=== PATIENT | female | born 1990 | race Caucasian/White ===

== ENCOUNTER 2017-11-26 08:00 | Inpatient (IN) ==
--- NOTE | 2017-11-26 15:29 | OB/GYN History & Physical ---
Date of Encounter: 11/26/17 Time of Encounter: 15:13 Assessment and Plan (1) 40 weeks gestation of Current visit: Yes Status: Acute IOL with cytotec planned, Anticipate (2) Placental abnormality in third trimester Current visit: Yes Status: Acute Patient with accessory lobe of the placenta (3) Tobacco smoking affecting , antepartum Current visit: No Status: Chronic Patient currently using nicotine patches (4) complicated by subutex maintenance, antepartum Current visit: Yes Status: Acute Patient currently taking 8 mg twice a day.Pt told to bring home subutex and was made aware we will not give her new rx here. History of Present Illness Chief complaint: Here for induction of labor HPI: Ms. Marcial is a 27 year old female presenting to labor and delivery for induction of labor. Patient is a . Gestational age of 40 weeks and 3 days. Patiently currently taking Subutex 8 mg in the morning and 8 mg at night. Along with vitamin and nicotine patch. Patient has had a complicated due to accessory lobe of the placenta and noncompliance with medical treatment, missed appointments and testing, did not have MFM consultation as recommended. . The patient reports good movement, denies any vaginal bleeding, cramping or discharge. She denies urinary symptoms at this time. Denies any other symptoms or fevers recently. Labs: Patient is O+ but tested positive for antibodies on blood screen. GBS and HIV negative, Unknown Rubella, varicella and TPall labs Past Med Surg Social Fam HX - Past Medical History Medical history: other (Hepatitis C) Psychiatric history: no psych history - Past Surgical History Surgical History: no surgical history - Social History Smoking Status: Current every day smoker Smokeless Tobacco Status: No Alcohol use: none Drug use: opiates, prescription drug abuse - Family History Mother Family Member Ethnicity: Non- Living Status: Still Living Hx Family Cardiac Disorders: No Hx Family Respiratory Disorders: No Hx Family Cancer: No Hx Family GI Disorders: No Hx Family Endocrine Disorder: No Hx Family Neuromuscular Disorders: No Hx Family Neurologic Disorders: No Hx Family HEENT Disorders: No Hx Family Autoimmune Disorders: No Obstetrical History - Pregnancies : 4 Para: 3 Term: 3 : 0 Ab's: 0 Livin Medications and Allergies Tablet 1 tab PO DAILY 11/06/15 [History] Subutex 8 mg PO BID 11/06/15 [History] 3 Allergy/AdvReac Type Severity Reaction Status Date / Time cephalexin [From Keflex] Allergy Hives Verified 11/06/15 21:56 Review of System OB All systems PM: reviewed and no additional remarkable complaints except as stated Exam - Constitutional Constitutional: well developed, well nourished, no acute distress, average body habitus - HEENT HEENT: Normocephaly, Mucus Membranes Moist - Neck Neck exam: normal inspection - Lungs Respiratory exam: CTAB - Cardiovascular Cardiovascular exam: RRR - Abdomen Abdomen: Present: bowel sounds normal, gravid, non tender - Extremities Extremities exam: mottling (Pt with irregular coloring to lower legs ) - Vagina Vagina: Present: normal moisture - Cervix Dilation: 5 - Uterus Uterus exam: Present: normal contour Results Result Diagrams: 11/26/17 16:12 All other labs normal.
[2017-11-26] MEDS ORDERED: Metoclopramide 10 MG/2 ML VIAL IVP PRN ×2 (15:51→18:00)
[2017-11-26] MEDS ORDERED: Famotidine 20 MG/2 ML VIAL IVP PRN (15:51)
[2017-11-26] MEDS ORDERED: Naloxone 0.4 MG/ML INJ IVP PRN ×2 (15:51→18:02)
[2017-11-26] MEDS ORDERED: Ondansetron 4 MG/2 ML VIAL IVP PRN (15:51)
[2017-11-26] MEDS ORDERED: miSOPROStol 25 MCG TABLET PO PRN (15:57)
[2017-11-26] MEDS ORDERED: Ringers Solution, Lactated 1,000 ML IVC SCH ×2 (16:00→18:00)
[2017-11-26 16:29] LABS: Basophils % 0.2 %; Eosinophils # 0.1 K/mcL (0.0-0.6); Eosinophils % 0.6 %; Hematocrit 30.2 % (35.3-44.9); Hemoglobin 9.3 g/dL (11.5-15.4); Immature Granulocytes % 0.6 % (0-4); Lymphocytes # 2.4 K/mcL (0.6-4.6); Lymphocytes % 19.6 %; Mean Corpuscular HGB Conc 30.8 g/dL (31.6-35.5); Mean Corpuscular Volume 74.6 fL (83.0-100.0); Mean Platelet Volume 8.9 fL (9.4-12.4); Monocytes # 0.7 K/mcL (0.0-1.3); Monocytes % 5.2 %; Neutrophils # 9.2 K/mcL (1.6-8.9); Platelet Count 409 K/mcL (140-400); Red Blood Count 4.05 M/mcL (3.82-4.97); Red Cell Distribution Width 15.8 % (11.5-14.5); Segmented Neutrophils % 73.8 %
[2017-11-26 16:37] LABS: Amphetamine Screen,Urine Negative ng/mL (Cutoff=1000); Barbiturate Screen,Urine Negative ng/mL (Cutoff=200); Benzodiazepines Screen,Urine Negative ng/mL (Cutoff=200); Cannabinoid Screen,Urine Negative ng/mL (Cutoff = 50); Cocaine Screen,Urine Negative ng/mL (Cutoff= 300); Opiate Screen,Urine Negative ng/mL (Cutoff=300); Phencyclidine Screen,Urine Negative ng/mL (Cutoff=25)
[2017-11-26] MEDS ORDERED: *HR* FentaNYL (PF) 100 MCG/2 ML VIAL ONE (17:06)
[2017-11-26] MEDS ORDERED: *HR* Propofol 200 MG/20 ML VIAL IVP ONE (17:06)
[2017-11-26] MEDS ORDERED: *HR* Succinylcholine 200 MG/10 ML VIAL IVP ONE (17:08)
[2017-11-26] MEDS ORDERED: Clindamycin 900 MG/50 ML 900 MG/50 ML IV.SOLN IVPB ONE (17:09)
[2017-11-26] MEDS ORDERED: *HR* Oxytocin 10 UNIT/ML VIAL IM ONE (17:15)
[2017-11-26] MEDS ORDERED: *HR* HYDROmorphone (PF) 1 MG/ML SYRINGE ONE (17:24)
[2017-11-26] MEDS ORDERED: Ketorolac 30 MG/ML VIAL ONE (17:26)
--- NOTE | 2017-11-26 17:28 | OB Labor Progress Note ---
Date of Encounter: 11/26/17 Time of Encounter: 16:53 Labor Progress Note - Subjective Subjective: Called to room for decels on tracing. - Heart Tones Heart Tones: baseline 120/+accels/ 1 prolonged decel and recurrent variable or late decels. - Interventions Interventions: AROM for clear fluid, FSE placedl repositioning. - Plan Plan: Decels continued to occur despite corrective measures. Dr. Panchal called, decision for section made at this time. Patient transferred to OR.
[2017-11-26] MEDS ORDERED: Ondansetron 4 MG/2 ML VIAL IVP ONE (17:51)
[2017-11-26] MEDS ORDERED: Dexamethasone 4 MG/ML VIAL IVP ONE (17:51)
[2017-11-26] MEDS ORDERED: *HR* HYDROmorphone (PF) 1 MG/ML SYRINGE IVP PRN (17:51)
[2017-11-26] MEDS ORDERED: *HR* Promethazine 25 MG/ML VIAL IVP PRN (17:51)
[2017-11-26] MEDS ORDERED: Simethicone 80 MG TAB.CHEW PO PRN (18:00)
[2017-11-26] MEDS ORDERED: Oxytocin 20 units/ LR 1000 mL 20 UNIT/1,000 ML BAG IVC SCH (18:00)
[2017-11-26] MEDS ORDERED: Ondansetron 4 MG/2 ML VIAL IVP SCH (18:00)
[2017-11-26] MEDS ORDERED: Measles/Mumps/Rubella Vacc 0.5 ML VIAL SQ ONE (18:00)
[2017-11-26] MEDS ORDERED: Sennosides 8.6 MG TABLET PO PRN (18:00)
[2017-11-26] MEDS ORDERED: *HR* HYDROmorphone 20 MG/20 ML PCA IVC PRN (18:02)
--- NOTE | 2017-11-26 18:07 | OB/GYN Procedure Note ---
<Jazlyn Donnelly - Last Filed: 11/26/17 18:05> Section - Date of procedure: 11/26/17 Preop diagnosis: category 2 FHT tracing, desires sterilization Post-op diagnosis: same (parital abruption) Procedure: section, primary low transverse, bilateral tubal ligation Surgeon: Ish Panchal Estimated blood loss (cc): 300 Was there an head start assistant teacher present: Yes Plant Maintenance Technician: Jazlyn Donnelly Anesthesiologist: Jaiden Martin Anesthesia Type: General section complications: none Disposition: PACU Specimens: Placenta, Cord blood, Right tube segment, Left tube segment - (s) A Delivery Date: 11/26/17 Infant Delivery Time: 17:15 Presentation: vertex Position: LYNSEY Gender: Male Viability: Viable Pounds: 7 Ounces: 6 Gram Weight: 3355 kg at 1 minute: 8 at 5 minutes: 9 Shoulder Dystocia: not encountered Specimens collected: cord blood Placenta: complete extraction <Ish Panchal - Last Filed: 11/27/17 04:55> Section - Narrative Narrative: Patient was taken to the operating room. She was prepped and draped in the standard fashion. Fry catheter was inserted. After satisfactory anesthesia was achieved an appropriate timeout was obtained, the abdomen was entered through standard Maylard incision. The Leonora retractor was placed. The peritoneum overlying the lower uterine segment was incised in U-shaped fashion. Uterine cavity was entered sharply and extended laterally. Membranes ruptured with clear fluid. With fundal pressure the head, torso, and legs were delivered. The umbilical cord clamped and cut and the was handed to nursery staff for further evaluation. Placenta was removed. Tubes were bilaterally resected and sent to pathology for analysis. Pedicles were ligated using 2-0 chromic. Uterus closed with 0 Monocryl in a single layer. KUB was obtained which was negative. The abdomen was closed in standard fashion using 0 Vicryl on the fascia in renetta on the skin. Sterile dressing was applied. Patient was taken to recovery in satisfactory condition.
--- NOTE | 2017-11-27 02:39 | Anesthesia Evaluation Post Op ---
Date of Encounter: 11/27/17 Time of Encounter: 20:00 - Vital Signs Vital Signs: BP 116/59 P81 R 16 T 98.3 spo2 98 - Lungs Lungs: Clear Ascult./Percussion - Airway Airway: Non-obstructed - Cardiovascular Regular Rate - Mental Status Mental Status: Alert & Oriented, Answers Appropriately - Pain Pain Scale: 3 Pain Scale used: Numeric (1 - 10) - Nausea Vomiting Nausea Vomiting: Not Present - Hydration Hydration: NPO, Has not voided - Discharge PostOp Status: Transfer Patient to floor
[2017-11-27 05:11] LABS: Basophils % 0.1 %; Hematocrit 27.7 % (35.3-44.9); Hemoglobin 8.6 g/dL (11.5-15.4); Immature Granulocytes % 0.7 % (0-4); Lymphocytes # 2.2 K/mcL (0.6-4.6); Lymphocytes % 11.2 %; Mean Corpuscular Hemoglobin 23.1 pg (28.0-33.3); Mean Corpuscular Volume 74.5 fL (83.0-100.0); Monocytes # 0.8 K/mcL (0.0-1.3); Monocytes % 4.1 %; Neutrophils # 16.3 K/mcL (1.6-8.9); Nucleated Red Blood Cells 0.1 /100 WBC (0); Platelet Count 407 K/mcL (140-400); Red Blood Count 3.72 M/mcL (3.82-4.97); Red Cell Distribution Width 15.8 % (11.5-14.5); Segmented Neutrophils % 83.9 %
--- NOTE | 2017-11-27 08:34 | OB/GYN Progress Note ---
Date of Encounter: 11/27/17 Time of Encounter: 08:32 - Assessment and Plan (1) S/P section Current Visit: Yes Status: Acute Pt meeting POD#1 milestones. Await ambulation, spontaneous void, and flatus. D/ C PLUMBER HELPER this am. Percocet and home subutex for pain control. (2) Mother currently breast-feeding Current Visit: Yes Status: Acute (3) anemia Current Visit: Yes Status: Acute Continue iron (4) complicated by subutex maintenance, antepartum Current Visit: Yes Status: Acute Pt to take home subutex once verified by pharmacy. (5) Tobacco smoking affecting , antepartum Current Visit: No Status: Chronic Subjective - Subjective Interval history: Fry removed this am. Pt reports moderate pain. She has not yet ambulated, voided , or had flatus. SHe is tolerating a regular diet. Patient reports: appetite normal, pain well controlled : doing well, nursing well Objective - Vital Signs Latest vital signs: Vital Signs Temp Pulse Resp BP Pulse Ox 11/27/17 03:30 98.3 F 66 16 102/61 95 11/26/17 22:00 97.8 F 86 18 110/70 95 11/26/17 21:30 98.7 F 83 16 112/71 96 11/26/17 21:00 98.7 F 83 18 117/65 11/26/17 17:51 98.6 F 80 16 112/65 96 Intake and Output 11/26/17 11/27/17 11/27/17 23:59 07:59 15:59 Output Total 700 / 700 Balance -700 / -700 Output: Catheter 700 / 700 Other: Weight 68 kg - Exam Lungs: bilateral: normal Chest: Normal S1, Normal S2 Extremities: Present: normal Abdomen: Present: soft, tenderness (appropriately tender) Incision: Present: dressed (dressing dry and intact) Uterus: Present: firm Fundal Height: 1 (U/1) - Labs Labs: Laboratory Results - last 24 hr 11/26/17 11/26/17 11/26/17 16:12 16:12 16:12 WBC 12.5 H RBC 4.05 Hgb 9.3 L Hct 30.2 L MCV 74.6 L MCH 23.0 L MCHC 30.8 L RDW 15.8 H Plt Count 409 H MPV 8.9 L Immature Gran % 0.6 Seg Neutrophils % 73.8 Lymphocytes % 19.6 Monocytes % 5.2 Eosinophils % 0.6 Basophils % 0.2 Neutrophils # 9.2 H Lymphocytes # 2.4 Monocytes # 0.7 Eosinophils # 0.1 Basophils # 0.0 Nucleated RBCs/100 WBC Urine Opiates Screen Negative Ur Barbiturates Screen Negative Ur Phencyclidine Scrn Negative Ur Amphetamines Screen Negative U Benzodiazepines Scrn Negative Urine Cocaine Screen Negative U Marijuana (THC) Screen Negative Blood Type O POSITIVE Antibody Screen NEGATIVE 11/27/17 04:28 WBC 19.4 H D RBC 3.72 L Hgb 8.6 L Hct 27.7 L MCV 74.5 L MCH 23.1 L MCHC 31.0 L RDW 15.8 H Plt Count 407 H MPV 10.0 Immature Gran % 0.7 Seg Neutrophils % 83.9 Lymphocytes % 11.2 Monocytes % 4.1 Eosinophils % 0.0 Basophils % 0.1 Neutrophils # 16.3 H Lymphocytes # 2.2 Monocytes # 0.8 Eosinophils # 0.0 Basophils # 0.0 Nucleated RBCs/100 WBC 0.1 H Urine Opiates Screen Ur Barbiturates Screen Ur Phencyclidine Scrn Ur Amphetamines Screen U Benzodiazepines Scrn Urine Cocaine Screen U Marijuana (THC) Screen Blood Type Antibody Screen
[2017-11-27] MEDS: Prenatal Vit/FA 1 EACH TABLET PO SCH (09:13)
[2017-11-27] MEDS: *HR* OxyCODONE/APAP 5/325 TABLET PO PRN ×2 (09:52→20:12)
[2017-11-27 11:46] LABS: Rubella IgG Antibody POSITIVE (POSITIVE); Varicella Zoster IgG Antibody Positive
[2017-11-27] MEDS: Ibuprofen 600 MG TABLET PO PRN (20:11)
[2017-11-28] MEDS: *HR* OxyCODONE/APAP 5/325 TABLET PO PRN ×2 (01:31→06:23)
[2017-11-28] MEDS: Ibuprofen 600 MG TABLET PO PRN ×2 (01:31→09:48)
[2017-11-28 08:33] VITALS: BP 107/68
--- NOTE | 2017-11-28 09:42 | Discharge Summary ---
Date of Encounter: 11/28/17 Time of Encounter: 09:40 - Discharge Diagnosis (1) 40 weeks gestation of Priority: Primary Status: Acute (2) Placental abnormality in third trimester Priority: Primary Status: Acute (3) Tobacco smoking affecting , antepartum Priority: Secondary Status: Chronic (4) complicated by subutex maintenance, antepartum Priority: Secondary Status: Acute (5) delivery delivered Priority: Primary Status: Acute Comments: Pt states feeling well, Pain well managed on po medication, family has not brought subutex but patient states she will be able to get it today, tolerates diet without difficulty, passing flatus, no BM. Desires discharge - Discharge Medications Prescriptions: Ibuprofen [Motrin] 600 mg PO Q6HR PRN #60 tablet PRN Reason: Cramping Docusate [Colace] 100 mg PO BID #60 capsule Ferrous Sulfate 325 mg PO DAILY #60 tablet Home Medications: Tablet 1 tab PO DAILY 11/06/15 [History] Subutex 8 mg PO BID 11/06/15 [History] Docusate [Colace] 100 mg PO BID #60 capsule 11/28/17 [Rx] Ferrous Sulfate 325 mg PO DAILY #60 tablet 11/28/17 [Rx] Ibuprofen [Motrin] 600 mg PO Q6HR PRN #60 tablet 11/28/17 [Rx] Simethicone [Gas-X] 80 mg PO TID PRN tab.chew 11/28/17 [Rx] Allergies/Adverse Reactions: 3 Allergy/AdvReac Type Severity Reaction Status Date / Time cephalexin [From Keflex] Allergy Hives Verified 11/06/15 21:56 Data Procedures and tests throughout hospitalization: Laboratory Tests 11/26/17 11/26/17 11/26/17 16:12 16:12 16:12 WBC 12.5 H RBC 4.05 Hgb 9.3 L Hct 30.2 L MCV 74.6 L MCH 23.0 L MCHC 30.8 L RDW 15.8 H Plt Count 409 H MPV 8.9 L Immature Gran % 0.6 Seg Neutrophils % 73.8 Lymphocytes % 19.6 Monocytes % 5.2 Eosinophils % 0.6 Basophils % 0.2 Neutrophils # 9.2 H Lymphocytes # 2.4 Monocytes # 0.7 Eosinophils # 0.1 Basophils # 0.0 Nucleated RBCs/100 WBC Urine Opiates Screen Negative Ur Barbiturates Screen Negative Ur Phencyclidine Scrn Negative Ur Amphetamines Screen Negative U Benzodiazepines Scrn Negative Urine Cocaine Screen Negative U Marijuana (THC) Screen Negative T.pallidum Ab Interpret Rubella IgG Antibody VZV IgG Antibody Blood Type O POSITIVE Antibody Screen NEGATIVE 11/26/17 11/27/17 16:12 04:28 WBC 19.4 H D RBC 3.72 L Hgb 8.6 L Hct 27.7 L MCV 74.5 L MCH 23.1 L MCHC 31.0 L RDW 15.8 H Plt Count 407 H MPV 10.0 Immature Gran % 0.7 Seg Neutrophils % 83.9 Lymphocytes % 11.2 Monocytes % 4.1 Eosinophils % 0.0 Basophils % 0.1 Neutrophils # 16.3 H Lymphocytes # 2.2 Monocytes # 0.8 Eosinophils # 0.0 Basophils # 0.0 Nucleated RBCs/100 WBC 0.1 H Urine Opiates Screen Ur Barbiturates Screen Ur Phencyclidine Scrn Ur Amphetamines Screen U Benzodiazepines Scrn Urine Cocaine Screen U Marijuana (THC) Screen T.pallidum Ab Interpret Negative Rubella IgG Antibody POSITIVE VZV IgG Antibody Positive Blood Type Antibody Screen Labs on day of discharge: Labs from last 24 hours 11/26/17 16:12 T.pallidum Ab Interpret Negative Rubella IgG Antibody POSITIVE VZV IgG Antibody Positive - Impressions ITS Impressions KUB X-Ray 11/26/17 17:19 IMPRESSION: Nonspecific bowel-gas pattern. No radiopaque foreign body identified. D/ / Omer Hatch MD / Omer Hatch MD Interpreting Provider: Omer Hatch MD Date of admission: 11/26/17 14:38 Primary care physician: PCP NONE Consults: 11/26/17 18:04 Consult to Retread Mold Operator [CONS] Routine Reason for SW Consult: Subutex use in Discharging clinician: Saranya Ross Anticipated date of discharge: 11/28/17 - Patient Status Disposition: Home, Self-Care Condition: Good Functional capacity at discharge: independent ambulation Overall status at discharge: patient is back to baseline - Discharge Instructions Follow Up With: NONE,PCP [Primary Care Provider] - Ish Panchal MD [Partnered Physician] - - Diet and Activity Activity: increase activity as tolerated Diet: regular diet Hospital Course Reason for admission: induction of labor Delivery: section Episiotomy: none Laceration: none Other procedures: none complications: none Discharge diagnosis: IUP at term delivered baby: male Hospital course: Section - Date of procedure: 11/26/17 Preop diagnosis: category 2 FHT tracing, desires sterilization Post-op diagnosis: same (parital abruption) Procedure: section, primary low transverse, bilateral tubal ligation Surgeon: Ish Panchal Estimated blood loss (cc): 300 Was there an senior it assistant present: Yes Tobacco Primer Machine Operator: Jazlyn Donnelly Anesthesiologist: Jaiden Martin Anesthesia Type: General section complications: none Disposition: PACU Specimens: Placenta, Cord blood, Right tube segment, Left tube segment - (s) Infant A Delivery Date: 11/26/17 Delivery Time: 17:15 Presentation: vertex Position: LYNSEY Gender: Male Viability: Viable Pounds: 7 Ounces: 6 Gram Weight: 3355 kg at 1 minute: 8 at 5 minutes: 9 Shoulder Dystocia: not encountered Specimens collected: cord blood Placenta: complete extraction Stable in PP and appropriate for discharge. OAARS reviewed, but not sending home on narcotics, pt will get subutex from home. Time Attestation: Total time spent providing and/or coordinating discharge services: Time Spent: Less than 30 minutes - VTE Reasons for not Prescribing Prophylaxis: Treatment not Indicated - Low risk for VTE Documentation of Mechanical Device: Intermittent pneumatic compression device Exam - Constitutional Vitals: Temp Pulse Resp BP Pulse Ox 98.2 F 89 12 107/68 96 11/28/17 08:32 11/28/17 08:32 11/28/17 08:32 11/28/17 08:32 11/28/17 08:32 General appearance IM: A&O X 3 - Respiratory Respiratory exam: Present: CTAB - Cardiovascular Cardiovascular exam IM: Present: RRR - GI/Abdominal GI/Abdominal exam IM: normal bowel sounds, soft Incision: normal, intact - Uterine Tone: Firm Uterus Position: At Umbilicus - Neurological Exam Neurological exam: normal gait, oriented X3 - Psychiatric Additional comments: Reports good mood.
[2017-11-28] MEDS: Prenatal Vit/FA 1 EACH TABLET PO SCH (09:47)
== END 2017-11-28 11:50 | disposition home or self-care (01) | DRG 540 ==
LOC: 1NENULAB 14:38 → 1NENUOBS 21:14
PROVIDERS: ADMIT Obstetrics & Gynecology; ATTEND Obstetrics & Gynecology